=== PATIENT | female | born 1970 | race Caucasian/White ===

== ENCOUNTER 2016-11-05 19:48 | Emergency (ER) | payer OTHER ==
[2016-11-05 19:56] VITALS: BP 97/59
[2016-11-05] MEDS ORDERED: Azithromycin TAB* 250 MG PO ONE (20:38)
--- NOTE | 2016-11-05 20:53 | UC ---
Eye Complaint HPI - HPI Summary HPI Summary: FOUR DAYS OF WORSENING STYE ON LOWER LID OF RIGHT EYE. 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 Hx Last Menstrual Period: hysterectomy ?: Yes Onset/Duration: Sudden Onset Severity Initially: Mild Severity Currently: Moderate Associated Signs And Symptoms: Negative: Photophobia, Drainage (Clear), Drainage (Purulent), Vision Impairment Right, Vision Impairment Left - Risk Factors Penetrating Injury Risk Factor: Negative Acute Glaucoma Risk Factors: Negative Optic Artery Occlusion Risk Factors: Negative - Allergies/Home Medications Allergies/Adverse Reactions: Allergies Allergy/AdvReac Type Severity Reaction Status Date / Time Amoxicillin Allergy Unknown Verified 11/05/16 19:56 Reaction Details Penicillins AdvReac See Comment Verified 11/05/16 19:56 PMH/Surg Hx/FS Hx/Imm Hx Previously Healthy: Yes - Surgical History Surgical History: Yes Surgery Procedure, Year, and Place: hysterectomy. appendectomy. bilateral carpal tunnel - Family History Known Family History: Positive: Cardiac Disease, Hypertension, Diabetes - Social History Alcohol Use: Occasionally Substance Use Type: None Smoking Status (MU): Never Smoked Tobacco Length of Time of Smoking/Using Tobacco: only smoked at age 16 Have You Smoked in the Last Year: No Cessation Counseling: Patient Advised to Stop Review of Systems Constitutional: Negative Skin: Negative Eyes: Other - STYE RIGHT INFERIOR LID ENT: Negative Respiratory: Negative Cardiovascular: Negative Gastrointestinal: Negative Genitourinary: Negative Motor: Negative Neurovascular: Negative Musculoskeletal: Negative Neurological: Negative Psychological: Negative All Other Systems Reviewed And Are Negative: Yes Physical Exam Triage Information Reviewed: Yes Appearance: Well-Appearing, No Pain Distress, Well-Nourished Vital Signs: Initial Vital Signs Temp 97.4 F 11/05/16 19:50 Pulse 65 11/05/16 19:50 Resp 16 11/05/16 19:50 BP 97/59 11/05/16 19:50 Pulse Ox 98 11/05/16 19:50 Vital Signs Reviewed: Yes Eyes: Positive: Other: - STYE RIGHT INFERIOR LID ENT Exam: Normal ENT: Positive: Normal ENT inspection Dental Exam: Normal Neck exam: Normal Respiratory Exam: Normal Respiratory: Positive: Chest non-tender, Lungs clear, Normal breath sounds, No respiratory distress Cardiovascular Exam: Normal Cardiovascular: Positive: RRR, No Murmur, Pulses Normal Abdominal Exam: Normal Abdomen Description: Positive: Nontender, No Organomegaly Musculoskeletal Exam: Normal Neurological Exam: Normal Psychological Exam: Normal Psychological: Positive: Normal Response To Family Skin Exam: Normal Eye Complaint Course/Dx - Differential Dx/Diagnosis Differential Diagnosis/HQI/PQRI: Conjunctivitis Provider Diagnoses: RIGHT STYE INFERIOR LID Discharge - Discharge Plan Condition: Stable Disposition: HOME Prescriptions: Azithromycin TAB* [Zithromax TAB (Z-CJ) 250 mg #6 tabs] 250 mg PO DAILY #4 tab Erythromycin OPTH OINT* 1 applic RIGHT EYE TID #1 tube Patient Education Materials: Nicolette (ED) Referrals: Catie Obrien MD [Primary Care Provider] -
== END 2016-11-05 20:55 | disposition home or self-care (01) ==
LOC: UCEAST 19:48
DX: H00.012 Hordeolum externum right lower eyelid (principal); Z72.0 Tobacco use
CPT/HCPCS: 99212; A9270-GY; G0463

== ENCOUNTER 2016-12-02 17:10 | Emergency (ER) | payer OTHER ==
[2016-12-02] MEDS ORDERED: NS 0.9% 1000 ML* 2,000 ML IV ONE (18:33)
[2016-12-02 19:11] LABS: Hematocrit 43 % (35-47); Hemoglobin 14.6 g/dl (12.0-16.0); Mean Corpuscular HGB Conc 34 g/dl (31-36); Mean Corpuscular Hemoglobin 32 pg (27-31); Mean Corpuscular Volume 94 fL (80-97); Mean Platelet Volume 11 um3 (7.4-10.4); Red Blood Count 4.59 10^6/ul (4.0-5.4); Red Cell Distribution Width 12 % (10.5-15); White Blood Count 17.3 10^3/ul (3.5-10.8)
[2016-12-02 19:20] LABS: ALT 16 U/L (7-52); Albumin 4.8 g/dL (3.2-5.2); Alkaline Phosphatase 49 U/L (34-104); BUN/Creatinine Ratio 10.4 (8-20); Blood Urea Nitrogen 8 mg/dL (6-24); C Reactive Protein < 1.00 mg/L (< 5.00); CO2 Carbon Dioxide 27 mmol/L (22-32); Calcium 9.5 mg/dL (8.6-10.3); Chloride 102 mmol/L (101-111); EGFR African American 103.8 (>60); EGFR Non-African American 80.7 (>60); Globulin 2.8 g/dL (2-4); Glucose 86 mg/dL (70-100); Lipase 26 U/L (11.0-82.0); Sodium 135 mmol/L (133-145); Total Protein 7.6 g/dL (6.4-8.9)
[2016-12-02 19:22] LABS: AST 22 U/L (13-39); Anion Gap 6 mmol/L (2-11); Potassium 3.5 mmol/L (3.5-5.0)
[2016-12-02 19:35] LABS: Urine Bacteria Absent (Absent); Urine Bilirubin Negative (Negative); Urine Glucose Negative (Negative); Urine Nitrite Negative (Negative)
[2016-12-02] MEDS ORDERED: NS 0.9% 1000 ML* 1,000 ML IV ONE (19:50)
[2016-12-02] MEDS ORDERED: Ondansetron INJ* 2 MG/ML VIAL IV ONE (19:50)
[2016-12-02] MEDS ORDERED: Ketorolac INJ* 30 MG/ML 1 ML VIAL IV ONE (19:50)
[2016-12-02] MEDS ORDERED: HYDROmorphone* 1 MG/ML 1 ML SYR IV ONE (19:50)
--- NOTE | 2016-12-02 20:24 | RAD ---
CLINICAL HISTORY: Left flank pain COMPARISON: July 03, 2015 TECHNIQUE: Multiple contiguous axial CT scans were obtained of the abdomen and pelvis, without intravenous contrast enhancement. Coronal and sagittal multiplanar reformations are submitted for review. Oral contrast was not administered. FINDINGS: The study is limited by the lack of intravenous contrast. This limits evaluation of the solid organs and vasculature. LUNG BASES: The lung bases are clear. LIVER: The liver is normal in shape, size, contour, and attenuation. BILE DUCTS: There is no intrahepatic or extrahepatic biliary dilatation. GALLBLADDER: The gallbladder is normal, without pericholecystic inflammatory change. PANCREAS: The pancreas is normal, without mass or ductal dilatation. SPLEEN: Normal in size and appearance. UPPER GI TRACT: Evaluation of the gastrointestinal tract is limited by incomplete gastric distention. The upper GI tract is unremarkable. SMALL BOWEL AND MESENTERY: The small bowel is normal in contour, course, and caliber. There is no obstruction or dilatation. COLON: The colon is normal in contour, course, caliber. There is no pericolonic inflammatory change. ADRENALS: Normal bilaterally. KIDNEYS: There is a calculus of the distal left ureter, just proximal to the left UVJ measuring approximately 0.4 cm in size there is mild pelviectasis and hydroureter. BLADDER: The bladder is smooth in contour. PELVIC ORGANS: The pelvic organs are not visualized. AORTA: The aorta is normal. IVC: Unremarkable LYMPH NODES: There is no lymphadenopathy by size criteria. ABDOMINAL WALL: There is no evidence for abdominal wall hernia. BONES AND SOFT TISSUES: Mild degenerative changes are noted. OTHER: There is a trace amount of free fluid within the pelvis IMPRESSION: 1. DISTAL LEFT URETERAL STONE, WITH MILD HYDRONEPHROSIS. 2. TRACE AMOUNT OF FREE FLUID WITHIN THE PELVIS.
[2016-12-02] MEDS ORDERED: Ciprofloxacin TAB* 500 MG PO ONE ×2 (21:08→21:09)
[2016-12-02] MEDS ORDERED: HYDROcodone/ACETAMIN 5-325 MG* 1 TAB PO ONE (21:09)
[2016-12-02 21:34] VITALS: BP 102/64
--- NOTE | 2016-12-03 13:23 | ED ---
Dudley Louie Thomas, scribed for Devante Rodriguez MD on 12/02/16 at 1942 . Abdominal Pain/Female - HPI Summary HPI Summary: The pt is a 46 y/o F accompanied by and presenting to the ED c/o abd pain that began two days ago. The pain is described as a pressure that radiates into her pelvic region. The pain is rated 9/10. The pain is aggravated by ambulation and deep breaths. It is alleviated by nothing. The patient has not treated the pain with anything RN TESTING. Pt additionally c/o hematuria, dizziness, L- sided flank pain, and nausea. Pt denies dysuria. PMHx: asthma, diverticulitis. PSHx: hysterectomy (2008), appendectomy. SHx: no smoking, occasional alcohol use , no illicit drug use. - History of Current Complaint Chief Complaint: EDAbdPain Stated Complaint: BLOOD IN URINE/ABD PAIN Time Seen by Provider: 12/02/16 19:29 Hx Obtained From: Patient, Family/Limited Radiology Technician - in room Hx Last Menstrual Period: hysterectomy Onset/Duration: Lasting Days - 2, Still Present Timing: Constant Pain Intensity: 9 Pain Scale Used: 0-10 Numeric Radiates to: Other - pelvic region Aggravating Factor(s): Movement, Deep Breaths Alleviating Factor(s): Nothing Associated Signs and Symptoms: Positive: Nausea, Other: - POS: hematuria, L- sided flank pain; NEG: dysuria. Allergies/Adverse Reactions: Allergies Allergy/AdvReac Type Severity Reaction Status Date / Time Amoxicillin Allergy Unknown Verified 12/02/16 18:29 Reaction Details Penicillins AdvReac See Comment Verified 12/02/16 18:29 PMH/Surg Hx/FS Hx/Imm Hx Previously Healthy: No Endocrine/Hematology History: Denies: Hx Diabetes, Hx Thyroid Disease Cardiovascular History: Denies: Hx Hypertension Respiratory History: Reports: Hx Asthma Denies: Hx Chronic Obstructive Pulmonary Disease (COPD) GI History: Denies: Hx Ulcer - Surgical History Surgery Procedure, Year, and Place: hysterectomy. appendectomy. bilateral carpal tunnel Infectious Disease History: No Infectious Disease History: Denies: Hx Hepatitis, Hx Human Immunodeficiency Virus (HIV), Traveled Outside the [place] in Last 30 Days - Family History Known Family History: Positive: Cardiac Disease, Hypertension, Diabetes - Social History Alcohol Use: Occasionally Substance Use Type: Reports: None Smoking Status (MU): Never Smoked Tobacco Length of Time of Smoking/Using Tobacco: only smoked at age 16 Have You Smoked in the Last Year: No Review of Systems Negative: Fever Positive: Abdominal Pain - pressure, radiates to pelvic, /10, onset 2 days ago , Nausea Positive: flank pain - L-sided, hematuria. Negative: dysuria Neurological: Other - POS: dizziness All Other Systems Reviewed And Are Negative: Yes Physical Exam Triage Information Reviewed: Yes Vital Signs On Initial Exam: Initial Vitals Temp Pulse Resp BP Pulse Ox 98.3 F 57 22 124/56 97 12/02/16 17:30 12/02/16 17:30 12/02/16 17:30 12/02/16 17:30 12/02/16 17:30 Vital Signs Reviewed: Yes Appearance: Positive: Well-Appearing, Well-Nourished, Pain Distress Skin: Positive: Warm, Skin Color Reflects Adequate Perfusion, Dry Head/Face: Positive: Normal Head/Face Inspection Eyes: Positive: Normal ENT: Positive: Normal ENT inspection Neck: Positive: Supple, Nontender Respiratory/Lung Sounds: Positive: Clear to Auscultation, Breath Sounds Present Cardiovascular: Positive: RRR Abdomen Description: Positive: Soft, CVA Tenderness (L), Other: - She is tender to her LLQ Bowel Sounds: Positive: Present Musculoskeletal: Positive: Normal Neurological: Positive: Normal Psychiatric: Positive: Normal, Affect/Mood Appropriate - Elsa Coma Scale Coma Scale Total: 15 Diagnostics - Vital Signs Vital Signs Temp Pulse Resp BP Pulse Ox 12/02/16 19:19 70 98 12/02/16 19:18 114/61 12/02/16 18:44 71 98 12/02/16 18:30 65 111/51 97 12/02/16 18:28 64 104/64 99 12/02/16 18:27 98.3 F 64 16 97/52 98 12/02/16 18:25 67 99 12/02/16 18:23 97/52 12/02/16 17:30 98.3 F 57 22 124/56 97 - Laboratory Lab Results: Lab Results 12/02/16 12/02/16 12/02/16 Range/Units 18:45 18:45 18:45 WBC 17.3 H (3.5-10.8) 10^3/ul RBC 4.59 (4.0-5.4) 10^6/ul Hgb 14.6 (12.0-16.0) g/dl Hct 43 (35-47) % MCV 94 (80-97) fL MCH 32 H (27-31) pg MCHC 34 (31-36) g/dl RDW 12 (10.5-15) % Plt Count 161 (150-450) 10^3/ul MPV 11 H (7.4-10.4) um3 Neut % (Auto) 87.0 H (38-83) % Lymph % (Auto) 6.5 L (25-47) % Davis % (Auto) 6.1 (1-9) % Eos % (Auto) 0.1 (0-6) % Baso % (Auto) 0.3 (0-2) % Absolute Neuts (auto) 15.0 H (1.5-7.7) 10^3/ul Absolute Lymphs (auto) 1.1 (1.0-4.8) 10^3/ul Absolute Monos (auto) 1.0 H (0-0.8) 10^3/ul Absolute Eos (auto) 0 (0-0.6) 10^3/ul Absolute Basos (auto) 0.1 (0-0.2) 10^3/ul Absolute Nucleated RBC 0.01 10^3/ul Nucleated RBC % 0 INR (Anticoag Therapy) 0.94 (0.89-1.11) Sodium 135 (133-145) mmol/L Potassium 3.5 (3.5-5.0) mmol/L Chloride 102 (101-111) mmol/L Carbon Dioxide 27 (22-32) mmol/L Anion Gap 6 (2-11) mmol/L BUN 8 (6-24) mg/dL Creatinine 0.77 (0.51-0.95) mg/dL Est GFR ( Amer) 103.8 (>60) Est GFR (Non-Af Amer) 80.7 (>60) BUN/Creatinine Ratio 10.4 (8-20) Glucose 86 (70-100) mg/dL Lactic Acid (0.5-2.0) mmol/L Calcium 9.5 (8.6-10.3) mg/dL Total Bilirubin 0.70 (0.2-1.0) mg/dL AST 22 (13-39) U/L ALT 16 (7-52) U/L Alkaline Phosphatase 49 (34-104) U/L C-Reactive Protein < 1.00 (< 5.00) mg/L Total Protein 7.6 (6.4-8.9) g/dL Albumin 4.8 (3.2-5.2) g/dL Globulin 2.8 (2-4) g/dL Albumin/Globulin Ratio 1.7 (1-3) Lipase 26 (11.0-82.0) U/L Beta HCG, Quant < 0.60 mIU/mL Urine Color Urine Appearance Urine pH (5-9) Ur Specific [place] (1.010-1.030) Urine Protein (Negative) Urine Ketones (Negative) Urine Blood (Negative) Urine Nitrate (Negative) Urine Bilirubin (Negative) Urine Urobilinogen (Negative) Ur Leukocyte Esterase (Negative) Urine WBC (Auto) (Absent) Urine RBC (Auto) (Absent) Ur Squamous Epith Cells (Absent) Urine Bacteria (Absent) Urine Glucose (Negative) 12/02/16 12/02/16 Range/Units 18:45 19:15 WBC (3.5-10.8) 10^3/ul RBC (4.0-5.4) 10^6/ul Hgb (12.0-16.0) g/dl Hct (35-47) % MCV (80-97) fL MCH (27-31) pg MCHC (31-36) g/dl RDW (10.5-15) % Plt Count (150-450) 10^3/ul MPV (7.4-10.4) um3 Neut % (Auto) (38-83) % Lymph % (Auto) (25-47) % Davis % (Auto) (1-9) % Eos % (Auto) (0-6) % Baso % (Auto) (0-2) % Absolute Neuts (auto) (1.5-7.7) 10^3/ul Absolute Lymphs (auto) (1.0-4.8) 10^3/ul Absolute Monos (auto) (0-0.8) 10^3/ul Absolute Eos (auto) (0-0.6) 10^3/ul Absolute Basos (auto) (0-0.2) 10^3/ul Absolute Nucleated RBC 10^3/ul Nucleated RBC % INR (Anticoag Therapy) (0.89-1.11) Sodium (133-145) mmol/L Potassium (3.5-5.0) mmol/L Chloride (101-111) mmol/L Carbon Dioxide (22-32) mmol/L Anion Gap (2-11) mmol/L BUN (6-24) mg/dL Creatinine (0.51-0.95) mg/dL Est GFR ( Amer) (>60) Est GFR (Non-Af Amer) (>60) BUN/Creatinine Ratio (8-20) Glucose (70-100) mg/dL Lactic Acid 1.3 (0.5-2.0) mmol/L Calcium (8.6-10.3) mg/dL Total Bilirubin (0.2-1.0) mg/dL AST (13-39) U/L ALT (7-52) U/L Alkaline Phosphatase (34-104) U/L C-Reactive Protein (< 5.00) mg/L Total Protein (6.4-8.9) g/dL Albumin (3.2-5.2) g/dL Globulin (2-4) g/dL Albumin/Globulin Ratio (1-3) Lipase (11.0-82.0) U/L Beta HCG, Quant mIU/mL Urine Color Stefania Urine Appearance Cloudy Urine pH 6.0 (5-9) Ur Specific [place] 1.008 L (1.010-1.030) Urine Protein 2+(100 mg/dl) H (Negative) Urine Ketones Negative (Negative) Urine Blood 3+ H (Negative) Urine Nitrate Negative (Negative) Urine Bilirubin Negative (Negative) Urine Urobilinogen Negative (Negative) Ur Leukocyte Esterase Negative (Negative) Urine WBC (Auto) 1+(6-10/hpf) H (Absent) Urine RBC (Auto) 3+(>10/hpf) H (Absent) Ur Squamous Epith Cells Present H (Absent) Urine Bacteria Absent (Absent) Urine Glucose Negative (Negative) Result Diagrams: 12/02/16 18:45 12/02/16 18:45 Lab Statement: Any lab studies that have been ordered have been reviewed, and results considered in the medical decision making process. - CT CT Abd/Pel CT Interpretation: Positive (See Comments) - 1. DISTAL LEFT URETERAL STONE, WITH MILD HYDRONEPHROSIS. 2. TRACE AMOUNT OF FREE FLUID WITHIN THE PELVIS. CT Interpretation Completed By: Radiologist Abdominal Pain Fem Course/Dx - Course Course Of Treatment: Ms Saldana presented with two days of LLQ pain and occasional back pain. She was found to have a 4 mm left ureteral stone with mild hydronephrosis and a leukocytoss of 17. Her urine was equivocal with 3+ RBC's and 1+ WBC's, no bacteria and positive squamous cells. She was treated with antibiotics, pain meds and flomax; she will F/U with urology. - Diagnoses Provider Diagnoses: Kidney stone Discharge - Discharge Plan Condition: Stable Disposition: HOME Prescriptions: Ciprofloxacin TAB* [Cipro Tab*] 500 mg PO BID #20 tab HYDROcodone/ACETAMIN 5-325 MG* [[place] 5-325 TAB*] 1 tab PO Q6H PRN #20 tab MDD 4 PRN Reason: Pain Tamsulosin CAP* [Flomax CAP*] 0.4 mg PO DAILY #7 cap Patient Education Materials: Kidney Stones (ED) Referrals: Mandeep Gale MD [Medical Doctor] - 2 Days Additional Instructions: Follow up with Dr. Gale. The documentation as recorded by the Dudley rojas Thomas accurately reflects the service I personally performed and the decisions made by , Devante Rodriguez MD.
== END 2016-12-02 21:18 | disposition home or self-care (01) ==
LOC: ED 17:10
DX: N20.1 Calculus of ureter (principal); N20.0 Calculus of kidney; R11.0 Nausea
CPT/HCPCS: 36415; 74176; 80053; 81003; 81015; 83605; 83690; 84702; 85025; 85610; 86140; 96374; 96375; 99284; A9270-GY; J1170; J1885; J2405

== ENCOUNTER 2016-12-04 03:58 | Observation (INO) | payer OTHER ==
[2016-12-04] MEDS ORDERED: Ketorolac INJ* 30 MG/ML 1 ML VIAL IV ONE (04:37)
[2016-12-04] MEDS ORDERED: Ondansetron INJ* 2 MG/ML VIAL IV ONE (04:37)
[2016-12-04] MEDS ORDERED: HYDROmorphone* 1 MG/ML 1 ML SYR IV ONE (04:37)
[2016-12-04] MEDS: NS 0.9% 1000 ML* 2,000 ML IV ONE ×2 (05:37→07:15)
[2016-12-04 06:18] LABS: Urine Bacteria 1+ (Absent); Urine Bilirubin Negative (Negative); Urine Glucose Negative (Negative); Urine Nitrite Negative (Negative)
[2016-12-04 06:25] LABS: ALT 15 U/L (7-52); Albumin 4.1 g/dL (3.2-5.2); Alkaline Phosphatase 39 U/L (34-104); BUN/Creatinine Ratio 8.8 (8-20); Blood Urea Nitrogen 8 mg/dL (6-24); CO2 Carbon Dioxide 26 mmol/L (22-32); Chloride 104 mmol/L (101-111); EGFR African American 85.6 (>60); EGFR Non-African American 66.6 (>60); Glucose 116 mg/dL (70-100); Sodium 136 mmol/L (133-145); Total Protein 7.1 g/dL (6.4-8.9)
[2016-12-04] MEDS ORDERED: HYDROmorphone* 1 MG/ML 1 ML SYR IV SLOW PU ONE (06:48)
[2016-12-04 06:55] LABS: Anion Gap 6 mmol/L (2-11)
--- NOTE | 2016-12-04 06:57 | ED ---
Kenrick Louie Rebecca, scribed for Luis Pires MD on 12/04/16 at 0435 . Abdominal Pain/Female - HPI Summary HPI Summary: Pt is a 46 y/o F who presents to ED c/o L-sided abdominal pain. Pain began 4 days ago, worsening this morning at 0100. Pain is currently severe, ranked 10/ 10. Sx aggravated and alleviated by nothing, unchanged by prescribed pain medication. Additionally c/o N/V. Denies dysuria and fever. Pt was evaluated 2 days ago by [facility] where she had a CT Abd/Pel that determined a Dx of renal calculi. Has not eaten or drank anything this morning. - History of Current Complaint Chief Complaint: EDGeneral Stated Complaint: RIGHT FLANK PAIN/DX KIDNEY STONES Time Seen by Provider: 12/04/16 04:26 Hx Obtained From: Patient Hx Last Menstrual Period: hysterectomy Onset/Duration: Still Present, Worse Since - 0100 Severity Currently: Severe Pain Intensity: 10 Pain Scale Used: 0-10 Numeric Location: Other - L-sided Aggravating Factor(s): Nothing Alleviating Factor(s): Nothing Associated Signs and Symptoms: Positive: Nausea, Vomiting. Negative: Fever Allergies/Adverse Reactions: Allergies Allergy/AdvReac Type Severity Reaction Status Date / Time Amoxicillin Allergy Unknown Verified 12/02/16 18:29 Reaction Details Penicillins AdvReac See Comment Verified 12/02/16 18:29 PMH/Surg Hx/FS Hx/Imm Hx Endocrine/Hematology History: Denies: Hx Diabetes, Hx Thyroid Disease Cardiovascular History: Denies: Hx Hypertension Respiratory History: Reports: Hx Asthma Denies: Hx Chronic Obstructive Pulmonary Disease (COPD) GI History: Denies: Hx Ulcer - Surgical History Surgery Procedure, Year, and Place: hysterectomy. appendectomy. bilateral carpal tunnel Infectious Disease History: No Infectious Disease History: Denies: Hx Hepatitis, Hx Human Immunodeficiency Virus (HIV), Traveled Outside the [place] in Last 30 Days - Family History Known Family History: Positive: Cardiac Disease, Hypertension, Diabetes - Social History Alcohol Use: Occasionally Substance Use Type: Reports: None Smoking Status (MU): Never Smoked Tobacco Length of Time of Smoking/Using Tobacco: only smoked at age 16 Have You Smoked in the Last Year: No Review of Systems Negative: Fever Positive: Abdominal Pain - L-sided abd pain, Vomiting, Nausea Negative: dysuria All Other Systems Reviewed And Are Negative: Yes Physical Exam - Summary Physical Exam Summary: The patient is well-nourished and in mild distress. The skin is warm and dry and skin color reflects adequate perfusion. HEENT: The head is normocephalic and atraumatic. The pupils are equal and reactive. The conjunctivae are clear and without drainage. Nares are patent and without drainage. Mouth reveals moist mucous membranes and the throat is without erythema and exudate. The external ears are intact. The ear canals are patent and without drainage. The tympanic membranes are intact. Respiratory: Chest is non-tender. Lungs are clear to auscultation and breath sounds are symmetrical and equal. Cardiovascular: Hear is regular rate and rhythm. There is no murmur or rub auscultated. There is no peripheral edema and pulses are symmetrical and equal. Abdomen: The abdomen is soft she reports the left side of the abdomen hurts. Reproducible left flank tenderness. There are normal bowel sounds heard in all four quadrants and there is no organomegaly palpated. Musculoskeletal: L CVA tenderness. Extremities are non-tender with full range of motion. There is good capillary refill. There is no peripheral edema or calf tenderness elicited. Neurological: Patient is alert and oriented to person, place and time. Psychiatric: The patient has an appropriate affect and does not exhibit any anxiety or depression. Triage Information Reviewed: Yes Vital Signs On Initial Exam: Initial Vitals Temp Pulse Resp BP Pulse Ox 97.6 F 66 18 96/66 98 12/04/16 04:00 12/04/16 04:00 12/04/16 04:00 12/04/16 04:00 12/04/16 04:00 Vital Signs Reviewed: Yes Diagnostics - Vital Signs Vital Signs Temp Pulse Resp BP Pulse Ox 12/04/16 04:03 97 F 66 20 96/66 98 12/04/16 04:00 97.6 F 66 18 96/66 98 - Laboratory Lab Results: Lab Results 12/04/16 12/04/16 Range/Units 05:39 05:45 Sodium 136 (133-145) mmol/L Potassium TNP Chloride 104 (101-111) mmol/L Carbon Dioxide 26 (22-32) mmol/L Anion Gap 6 (2-11) mmol/L BUN 8 (6-24) mg/dL Creatinine 0.91 (0.51-0.95) mg/dL Est GFR ( Amer) 85.6 (>60) Est GFR (Non-Af Amer) 66.6 (>60) BUN/Creatinine Ratio 8.8 (8-20) Glucose 116 H (70-100) mg/dL Calcium 9.0 (8.6-10.3) mg/dL Total Bilirubin 0.70 (0.2-1.0) mg/dL AST TNP ALT 15 (7-52) U/L Alkaline Phosphatase 39 (34-104) U/L Total Protein 7.1 (6.4-8.9) g/dL Albumin 4.1 (3.2-5.2) g/dL Globulin 3.0 (2-4) g/dL Albumin/Globulin Ratio 1.4 (1-3) Urine Color Straw Urine Appearance Clear Urine pH 6.0 (5-9) Ur Specific [place] 1.003 L (1.010-1.030) Urine Protein Negative (Negative) Urine Ketones Negative (Negative) Urine Blood 2+ H (Negative) Urine Nitrate Negative (Negative) Urine Bilirubin Negative (Negative) Urine Urobilinogen Negative (Negative) Ur Leukocyte Esterase Negative (Negative) Urine WBC (Auto) Trace(0-5/hpf) (Absent) Urine RBC (Auto) Trace(0-2/hpf) (Absent) Ur Squamous Epith Cells Present H (Absent) Urine Bacteria 1+ H (Absent) Urine Glucose Negative (Negative) Result Diagrams: 12/04/16 05:39 Lab Statement: Any lab studies that have been ordered have been reviewed, and results considered in the medical decision making process. Re-Evaluation - Re-Evaluation First Eval Re-Evaluation Time: 06:48 Change: Unchanged Comment: Pt has no relief with pain medication administered. Abdominal Pain Fem Course/Dx - Course Course Of Treatment: Pt is a 46 y/o F who presents to ED c/o L-sided abdominal pain. Pain began 4 days ago, worsening this morning at 0100. Pain is currently severe, ranked 10/10. Sx aggravated and alleviated by nothing, unchanged by prescribed pain medication. Additionally c/o N/V. Denies dysuria and fever. Pt was evalauted 2 days ago by [facility] where she had a CT Abd/Pel that determined a Dx of renal calculi. Has not eaten or drank anything this morning. In the ED course, the pt was administered fluids, Dilaudid, Toradol and Zofran. She will be signed out to Dr. Flores, pending dispo, awaiting pain management. - Diagnoses Differential Diagnosis: Positive: Urinary Tract Infection, Other - ureteral calculus Provider Diagnoses: Left ureteral calculus Discharge - Discharge Plan Condition: Stable Disposition: OTHER Discharge Disposition Comment: Pt will be signed out to Dr. Flores, pending dispo, awaiting pain managemen Referrals: Catie Obrien MD [Primary Care Provider] - The documentation as recorded by the Kenrick rojas Rebecca accurately reflects the service I personally performed and the decisions made by me, Luis Pires MD.
[2016-12-04 07:18] LABS: Hematocrit 38 % (35-47); Hemoglobin 12.9 g/dl (12.0-16.0); Mean Corpuscular HGB Conc 34 g/dl (31-36); Mean Corpuscular Hemoglobin 32 pg (27-31); Mean Corpuscular Volume 94 fL (80-97); Mean Platelet Volume 10 um3 (7.4-10.4); Red Blood Count 4.05 10^6/ul (4.0-5.4); Red Cell Distribution Width 12 % (10.5-15); White Blood Count 14.3 10^3/ul (3.5-10.8)
[2016-12-04] MEDS ORDERED: Ondansetron TAB* 4 MG PO ONE (08:36)
[2016-12-04] MEDS ORDERED: oxyCODONE/Acetamin 5/325 MG* TAB PO ONE (08:36)
--- NOTE | 2016-12-04 09:46 | RAD ---
HISTORY: Left flank pain and umbilical pain, evaluate for torsion. The patient is status post hysterectomy. COMPARISONS: None relevant TECHNIQUE: Multiple transverse and longitudinal ultrasound images were obtained of the pelvis using grayscale, color Doppler, and spectral Doppler imaging using the endovaginal transducer. FINDINGS: UTERUS: The uterus is not visualized.. ENDOMETRIUM: The endometrium is not visualized.. CUL-DE-SAC: There is a small amount of simple fluid within the cul-de-sac. This may be physiologic in a reproductive age female. RIGHT OVARY: The right ovary is not visualized LEFT OVARY: The left ovary measures 2.8 x 2.4 x 2.6 cm. There is a 2.2 cm simple cyst of the left ovary. Normal arterial and venous waveforms are identifiable within the ovary on spectral Doppler imaging. BLADDER: The bladder is not well visualized. OTHER: None IMPRESSION: 1. STATUS POST HYSTERECTOMY. 2. THE RIGHT OVARY IS NOT VISUALIZED. 3. 2.2 CM SIMPLE CYST OF LEFT OVARY. 4. SMALL AMOUNT OF FREE FLUID WITHIN THE PELVIS. THIS MAY BE PHYSIOLOGIC WITHIN A REPRODUCTIVE AGE FEMALE. 5. NO SONOGRAPHIC FEATURES OF TORSION. PLEASE NOTE THAT PARTIAL OR INTERMITTENT TORSION MAY BE SONOGRAPHICALLY NORMAL.
--- NOTE | 2016-12-04 09:50 | RAD ---
HISTORY: Pain, lateral, left renal stone COMPARISONS: CT dated December 02, 2016 TECHNIQUE: Multiple transverse and longitudinal ultrasound images were obtained of the left kidney and bladder using grayscale and color Doppler imaging. FINDINGS: RIGHT KIDNEY: No images are submitted of the right kidney. LEFT KIDNEY: The left kidney is normal in shape, size, contour, and echogenicity. There is mild pelviectasis. The left kidney measures 11 x 5.1 x 6.6 cm. BLADDER: The bladder is smooth in contour. Bilateral ureteral jets are identified. The catheter is noted on the CT is not well visualized current examination. AORTA AND IVC: No images are submitted of the vasculature. RETROPERITONEUM: Unremarkable. OTHER: None. IMPRESSION: MILD LEFT PELVIECTASIS. BILATERAL URETERAL JETS.
--- NOTE | 2016-12-04 10:23 | ED ---
Yadi Louie Edward, scribed for Jimmie Flores MD on 12/04/16 at 0737 . Progress - Progress Note Progress Note: Sign out from Dr. Pires at shift change. Patient discussed with Dr Gale who will review the CT scan and then call me back 835 am. Patient has 6/10 pain left side. Non tender abdomen. Getting sono. hospitalist and Dr Gale has asked that the patient be put in OBV, NPO, and if the patient remains in pain he will take to OR for stent. - Results/Orders Results/Orders: PELVIS US - 1. STATUS POST HYSTERECTOMY. 2. THE RIGHT OVARY IS NOT VISUALIZED. 3. 2.2 CM SIMPLE CYST OF LEFT OVARY. 4. SMALL AMOUNT OF FREE FLUID WITHIN THE PELVIS. THIS MAY BE PHYSIOLOGIC WITHIN A REPRODUCTIVE AGE FEMALE. 5. NO SONOGRAPHIC FEATURES OF TORSION. PLEASE NOTE THAT PARTIAL OR INTERMITTENT TORSION MAY BE SONOGRAPHICALLY NORMAL. RENAL US - MILD LEFT PELVIECTASIS. BILATERAL URETERAL JETS. Re-Evaluation - Re-Evaluation First Eval Re-Evaluation Time: 06:48 Change: Unchanged Comment: Pt has no relief with pain medication administered. 2 Re-Evaluation Time: 08:30 Comment: First re-eval post shift change Course/Dx - Course Course Of Treatment: Pt is a 46 y/o F who presents to ED c/o L-sided abdominal pain. Pain began 4 days ago, worsening this morning at 0100. Pain is currently severe, ranked 10/10. Sx aggravated and alleviated by nothing, unchanged by prescribed pain medication. Additionally c/o N/V. Denies dysuria and fever. Pt was evalauted 2 days ago by [facility] ED where she had a CT Abd/Pel that determined a Dx of renal calculi. Has not eaten or drank anything this morning. In the ED course, the pt was administered fluids, Dilaudid, Toradol and Zofran. She will be signed out to Dr. Flores, pending dispo, awaiting pain management. - Diagnoses Provider Diagnoses: Left ureteral calculus - Provider Notifications Discussed Care Of Patient With: Mandeep Gale Time Discussed With Above Provider: 08:37 The documentation as recorded by the wayneibYadi davis Edward accurately reflects the service I personally performed and the decisions made by me, Jmimie Flores MD.
[2016-12-04] MEDS ORDERED: Albuterol HFA INHALER* 8 gm MDI INH PRN (10:32)
[2016-12-04] MEDS ORDERED: Ondansetron INJ* 2 MG/ML VIAL IV PRN (10:33)
[2016-12-04] MEDS ORDERED: Acetaminophen TAB* 325 MG PO PRN (10:33)
[2016-12-04] MEDS ORDERED: HYDROmorphone* 1 MG/ML 1 ML SYR IV SLOW PU PRN (10:34)
[2016-12-04] MEDS ORDERED: PROCHLORPERAZINE INJ 5 MG/ML 2 ML VIAL IV PRN ×2 (10:34→17:59)
[2016-12-04] MEDS ORDERED: NS 0.9% 1000 ML* 1,000 ML IV SCH (10:45)
[2016-12-04] MEDS ORDERED: Levofloxacin 750 MG IVPREMIX(* 750 MG/150 ML BAG IVPB SCH (11:00)
[2016-12-04] MEDS ORDERED: Ketorolac INJ* 30 MG/ML 1 ML VIAL IV PUSH SCH (11:00)
--- NOTE | 2016-12-04 13:33 | HP ---
CC: Dr. Obrien * DATE OF ADMISSION: 12/04/2016. TIME OF EVALUATION: 10:15 a.m. CHIEF COMPLAINT: Belly pain. HISTORY OF PRESENT ILLNESS: Ms. Saldana is a 46-year-old lady with a past medical history of asthma, irritable bowel syndrome, and dry eye syndrome who presented to the emergency room with complaints of left lower quadrant pain. The patient states that three days ago she started to mild left flank pain radiating to her left inguinal area. She says that the pain was initially mild and she thought maybe she had pulled a muscle when playing with her cat. She went to work and she noticed that her urine was a tiana color. As the day progressed, the pain continued and at the end of her shift she states that her urine was "pure blood," so she came to the emergency room for further evaluation. On that visit, the patient had a CT of the abdomen and pelvis that showed distal left ureteral stone with mild hydronephrosis. She had a white cell count of 17,000 and her urinalysis showed 3+ blood, 1+ WBC, and 3+ RBC. There is no urine culture for that urinalysis in our system. She was discharged home on Tamsulosin, Ciprofloxacin, and Hydrocodone/ acetaminophen. She states that yesterday she felt relatively well, was able to go to work and her urine has cleared up. She states she took her medications as prescribed, but around one in the morning today, she woke up again with severe left flank pain radiating to the left inguinal area, 10/10 in intensity, associated with nausea, vomiting, and diaphoresis, so she came to the emergency room for further evaluation. As the patient has had recurrent symptoms, the plan is to have her admitted for symptom control. The patient denies fever, chills, chest pain, palpitations, shortness of breath or any other complaints. PAST MEDICAL HISTORY: 1. Asthma. 2. Irritable bowel syndrome. 3. Dry eye syndrome. 4. Status post hysterectomy. 5. Status post bilateral carpal tunnel repair. MEDICATIONS: 1. Acyclovir 200 mg p.o. b.i.d. 2. Albuterol Sulfate two puffs inhaled q.4 hours prn shortness of breath. 3. Ciprofloxacin 500 mg p.o. b.i.d. 4. Colace one tablet p.o. b.i.d. 5. Flovent HFA two puffs inhaled b.i.d. 6. Fluticasone nasal spray two sprays to both nares daily. 7. Hydrocodone/acetaminophen 5/325 mg one tablet p.o. q.4 hours as needed for pain. 8. Multivitamin one capsule p.o. daily. 9. Metamucil one packet p.o. daily. 10. Tamsulosin 0.4 mg p.o. daily. ALLERGIES: PENICILLINS. FAMILY HISTORY: The patient's mother passed of colon cancer. Father has a history of hypertension and stroke. SOCIAL HISTORY: She denies tobacco or drug use. She states she drinks occasionally. Last drink was beer and some mixed drinks two weeks ago. 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 Surrogate decision maker is her daughter, Lisseth Pagan, phone number [phone]. REVIEW OF SYSTEMS: A 14 point review of systems was performed. All the pertinent negatives and positives are found in the HPI. PHYSICAL EXAMINATION GENERAL: The patient is a pleasant lady, lying in bed in no acute distress. VITAL SIGNS: Temperature 97.6, heart rate 56, respiratory rate 18, oxygen saturation 96 percent on room air, blood pressure 101/60. HEENT: Pupils are equal, moist mucus membranes. CVS: Normal S1, S2. Regular rate and rhythm. Bradycardic. CHEST: Breath sounds present bilaterally with no added sounds. ABDOMEN: Soft with mild left lower quadrant tenderness. No guarding, no rebound, no CVA tenderness. NEUROLOGIC: She is alert and oriented times three, able to move all four extremities. LABORATORY/IMAGING DATA: The patient had a CBC that shows WBC of 14.3, hemoglobin of 12.9, hematocrit of 38, platelets of 154 with 87 percent neutrophils. Chemistry showed a sodium of 136, potassium was not measured, chloride was 104, bicarb was 26, BUN was 8, creatinine was 0.91, glucose was 116 , lactic acid was 0.7, calcium was 9. LFT's were normal. Urinalysis showed 2+ blood, 1+ bacteria. Renal ultrasound showed mild left pelviectasis and bilateral ureteral jets. Pelvis ultrasound showed a 2.2 simple cyst of the left ovary, small amount of free fluid within the pelvis, no sonographic features of torsion. EKG done on December 04 at 10:35 a.m. shows sinus bradycardia with no significant ST-T changes, no significant change from her prior EKG from September 2015. ASSESSMENT AND PLAN: Ms. Saldana is a 46-year-old lady with a past medical history of asthma and irritable bowel who presented to the emergency room for the second time in three days with complaints of left flank pain radiating to the left lower quadrant secondary to renal colic. 1. Renal colic: The patient will be admitted for medical management of hr pain. The plan is for aggressive IV hydration, to continue pain management with Toradol and Dilaudid as needed, but if her pain does not resolve, urologist is planning to take her to the OR later today in the early evening for stent placement. She will be seen in consultation by Dr. Gale and he does not feel she needs antibiotics right now, but would like her to receive Levofloxacin 750 mg material control specialist to the OR in case she does need a procedure done. The patient will receive a clear liquid diet for now and she will be NPO after lunch. The patient is healthy with no history of heart disease. Her EKG shows no new changes and I believe the patient is optimized for her procedure with no further testing. 2. Asthma: Stable. Will continue bronchodilators as needed and inhaled steroids. 3. Irritable bowel: Will continue Metamucil and Colace. 4. DVT prophylaxis: The patient has a score of 1 on the DVT Prophylaxis Risk Assessment Guide and we are going to encourage ambulation, especially because she already has hematuria. 5. Code status: Full. Approximately 55 minutes were spent with patient interview, medical records review, and physical examination to complete this admission with more than half this time spent [id number] with the patient in coordination of care. [id number]/[facility] #: [id number] MORGAN
[2016-12-04] MEDS ORDERED: Pneumococcal *Vac Polyvalent 0.5 ML VIAL IM ONE (14:00)
[2016-12-04] MEDS ORDERED: Buffered Lidocaine 0.9% SYRIN* 5 ML/SYR SYRINGE INTRADERM ONE (14:46)
[2016-12-04] MEDS ORDERED: Famotidine IV* 10 MG/ML 2 ML (20 mg) IV ONE (16:00)
[2016-12-04] MEDS ORDERED: Levofloxacin 750 MG IVPREMIX(* 750 MG/150 ML BAG ONE (16:26)
[2016-12-04] MEDS ORDERED: Famotidine IV* 10 MG/ML 2 ML (20 mg) ONE (16:26)
[2016-12-04] MEDS ORDERED: Iohexol 180 (CONTRAST) 10 ML SDV IV ONE (17:01)
[2016-12-04] MEDS ORDERED: Midazolam* 1 MG/ML 2 ML VIAL (2 MG) ONE (17:21)
[2016-12-04] MEDS ORDERED: fentaNYL* 50 MCG/ML 2 ML VIAL (100 MCG VIAL) ONE (17:21)
[2016-12-04] MEDS ORDERED: Propofol* 10 MG/ML 20 ML BTL IV PUSH ONE (17:21)
[2016-12-04] MEDS ORDERED: Lidocaine 2% PF * 5 ML VIAL ONE (17:21)
[2016-12-04] MEDS ORDERED: EPHEDrine (Pressors)* 50 MG/ML VIAL ONE (17:45)
[2016-12-04] MEDS ORDERED: Ondansetron INJ* 2 MG/ML VIAL ONE (17:49)
[2016-12-04] MEDS ORDERED: oxyCODONE/Acetamin 5/325 MG* TAB PO PRN (17:59)
[2016-12-04] MEDS ORDERED: HYDROcodone/ACETAMIN 5-325 MG* 1 TAB PO PRN (17:59)
[2016-12-04] MEDS ORDERED: fentaNYL* 50 MCG/ML 2 ML VIAL (100 MCG VIAL) IV PRN (17:59)
[2016-12-04] MEDS ORDERED: Mometasone 220 MCG MDI INH SCH (18:00)
[2016-12-04 18:40] VITALS: BP 113/61
--- NOTE | 2016-12-04 18:46 | RAD ---
INDICATION: Ureteral stent placement left side. COMPARISON: Comparison is made with a prior CT of the abdomen and pelvis from December 02, 2016. TECHNIQUE: 6 seconds of intermittent fluoroscopic guidance were provided and 4 spot films of the abdomen were centered on the left side. FINDINGS: There is partial opacification of the left renal collecting system. Subsequently there is placement of a double-J stent catheter on the left side which demonstrates normal course. IMPRESSION: INTRAOPERATIVE CONTROL FILMS. CPT II Codes: 6045F
[2016-12-04] MEDS ORDERED: Docusate CAP* 100 MG PO SCH (21:00)
--- NOTE | 2016-12-05 03:34 | OP ---
CC: Dr. Obrien * DATE OF OPERATION: 12/04/16 - ROOM #347 DATE OF : 70 SURGEON: Mandeep Gale MD ANESTHESIOLOGIST: Dr. Gricelda Jones. ANESTHESIA: General. PRE-OP DIAGNOSIS: Distal left ureteral calculus (5 to 6 mm). POST-OP DIAGNOSIS: Distal left ureteral calculus (5 to 6 mm). OPERATIVE PROCEDURE: Cystoscopy Left ureteroscopy and basketing of left ureteral calculus. Left retrograde pyelography, and placement of left ureteral stent (6- Honduran). INDICATION FOR PROCEDURE: Mrs. Saldana is a 46-year-old white female, who gives no past history of renal calculus disease, who presented to the emergency room 2 days ago with symptoms of left renal colic. Noncontrast CT of the abdomen and pelvis showed a 5-mm calculus in the distal left ureter associated with moderate left hydronephrosis. The patient was managed conservatively and sent home on oral pain medication, tamsulosin, and Cipro. The pain recurred today and she presented back to the emergency room with symptoms of left renal colic. She had additional work-up with a pelvic ultrasound, which was normal and a renal ultrasound, which showed left hydronephrosis. The patient has been requiring intravenous pain medications for pain control. Because of the above history and findings and the recurrent nature of the pain, the patient is taken to the operating room for endoscopic stone extraction. PATHOLOGY AT CYSTOSCOPY: The bladder mucosa looked normal. There were no suspicious bladder lesions seen. No calculi or diverticulae were noted. The ureteral orifices looked normal. No changes of cystitis. Upon left ureteroscopy, there was a calculus measuring about 5 to 6 mm in size that was impacted in the distal left ureter about 1 to 2 cm above the level of the orifice. The calculus had the gross appearance of a calcium oxalate stone. It had irregular edges explaining its impaction. Left retrograde pyelography showed [id number] left hydronephrosis. DESCRIPTION OF PROCEDURE: After successful general anesthesia, the patient was placed in the lithotomy position and was prepped and draped for a cystoscopy. Cystoscopy was performed. The bladder was inspected and the above findings were noted. A hybrid wire was then introduced into the left orifice. After several attempts , it was successfully introduced past the calculus, and was positioned in the area of the renal pelvis. A size 6.5 semi-rigid tapered ureteroscope was then passed inside the bladder. A flexible tip basket was introduced through the port of the ureteroscope and its flexible tip was introduced inside the left ureter adjacent to the guidewire and was used as a guide to introduce the ureteroscope with minimal trauma to the ureter. The calculus was identified. It was disimpacted and pushed into the distal ureter. At that level, it was engaged with a basket. It broke into 2 fragments. The fragments were then extracted separately with minimal trauma to the ureter, and sent for stone analysis. Retrograde pyelography was then performed. A size 6-Honduran stent was then placed with the proximal end coiling in renal pelvis and distal end coiling inside the bladder. The patient tolerated the procedure well and left the operating room in good condition. The plan is to see the patient back in the office next week and the stent will be removed in the office. [id number]/[facility] #: [id number] MORGAN
[2016-12-05] MEDS ORDERED: Psyllium PAK PO SCH (09:00)
[2016-12-05] MEDS ORDERED: Vitamin THERAPEUTIC TAB PO SCH (09:00)
[2016-12-05] MEDS ORDERED: Tamsulosin CAP* 0.4 MG PO SCH (09:00)
[2016-12-05] MEDS ORDERED: Fluticasone NASAL SPRAY 50MCG* 16 gm SPRAY BTL BOTH NARES SCH (09:00)
== END 2016-12-04 18:54 | disposition home or self-care (01) ==
LOC: ED 03:58 → SSU 10:31
PROVIDERS: ADMIT Internal Medicine; ATTEND Urology
DX: N13.2 Hydronephrosis with renal and ureteral calculous obstruction (principal); R10.32 Left lower quadrant pain; J45.909 Unspecified asthma, uncomplicated; K58.9 Irritable bowel syndrome, unspecified; N83.292 Other ovarian cyst, left side
CPT/HCPCS: 36415; 74420; 76775; 76856; 80053; 81003; 81015; 82365; 83605; 85025; 87086; 88300; 90732; 93005; 96374; 96375; 99284; A9270-GY; C1876; G0378; J1170; J1885; J2250; J2405; J2704; J3010

== ENCOUNTER 2018-02-27 17:42 | Emergency (ER) | payer BC, OTHER ==
[2018-02-27] MEDS ORDERED: HYDROcodone/ACETAMIN 5-325 MG* 1 TAB PO ONE (18:20)
--- NOTE | 2018-02-27 19:26 | ED ---
Upper Extremity Pain - HPI Summary HPI Summary: Patient complains of right shoulder pain starting yesterday 2 p.m. 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 History of right shoulder pain 3 years after rotator cuff injury. Patient took Motrin today at 1400 with no relief in pain. Patient was evaluated by ortho, diagnosed with rotator cuff injury, had physical therapy, had no surgery. History of right shoulder pain intermittently since. Denies any other pain, injury, symptoms. Medical history is asthma, constipation, IBS. - History of Current Complaint Chief Complaint: EDExtremityUpper Stated Complaint: RT SHOULDER PAIN Time Seen by Provider: 02/27/18 18:02 Hx Obtained From: Patient Hx Last Menstrual Period: hysterectomy Mechanism Of Injury: Other Onset/Duration: Started Days Ago Timing: Constant Severity Initially: Moderate Severity Currently: Moderate Pain Location: Shoulder Character: Aching, Throbbing Aggravating Factor(s): Movement Alleviating Factor(s): Nothing Associated Signs & Symptoms: Positive: Negative - Allergies/Home Medications Allergies/Adverse Reactions: Allergies Allergy/AdvReac Type Severity Reaction Status Date / Time amoxicillin Allergy Unknown Verified 02/27/18 17:57 Reaction Details Penicillins Allergy See Comment Verified 02/27/18 17:57 PMH/Surg Hx/FS Hx/Imm Hx Endocrine/Hematology History: Denies: Hx Diabetes, Hx Thyroid Disease Cardiovascular History: Reports: Hx Hypercholesterolemia Denies: Hx Hypertension Respiratory History: Reports: Hx Asthma Denies: Hx Chronic Obstructive Pulmonary Disease (COPD) GI History: Reports: Hx Irritable Bowel Denies: Hx Ulcer History: Reports: Hx Kidney Infection, Hx Kidney Stones - LEFT Sensory History: Denies: Hx Contacts or Glasses, Hx Hearing Aid Opthamlomology History: Denies: Hx Contacts or Glasses Neurological History: Reports: Hx Headaches, Hx Migraine Psychiatric History: Reports: Hx Depression - in the past - Surgical History Surgery Procedure, Year, and Place: hysterectomy. appendectomy. bilateral carpal tunnel Hx Anesthesia Reactions: No Infectious Disease History: No Infectious Disease History: Denies: Hx Hepatitis, Hx Human Immunodeficiency Virus (HIV), Traveled Outside the [place] in Last 30 Days - Family History Known Family History: Positive: Cardiac Disease, Hypertension, Diabetes - Social History Alcohol Use: Rare Substance Use Type: Reports: None Smoking Status (MU): Never Smoked Tobacco Length of Time of Smoking/Using Tobacco: only smoked at age 16 Have You Smoked in the Last Year: No Review of Systems Constitutional: Negative Eyes: Negative ENT: Negative Cardiovascular: Negative Respiratory: Negative Gastrointestinal: Negative Genitourinary: Negative Positive: Arthralgia Skin: Negative Neurological: Negative Psychological: Normal All Other Systems Reviewed And Are Negative: Yes Physical Exam - Summary Physical Exam Summary: No erythema, ecchymosis, swelling, extra warmth, deformity noted to right shoulder. Pain with abduction, external rotation. PMS intact distally. Triage Information Reviewed: Yes Vital Signs On Initial Exam: Initial Vitals Temp Pulse Resp BP Pulse Ox 97.4 F 67 20 105/61 98 02/27/18 17:45 02/27/18 17:45 02/27/18 17:45 02/27/18 17:45 02/27/18 17:45 Vital Signs Reviewed: Yes Appearance: Positive: Well-Appearing Skin: Positive: Warm Head/Face: Positive: Normal Head/Face Inspection Eyes: Positive: Normal Neck: Positive: Supple Respiratory/Lung Sounds: Positive: Clear to Auscultation Cardiovascular: Positive: Normal Abdomen Description: Positive: Nontender Musculoskeletal: Positive: Normal Neurological: Positive: Normal Psychiatric: Positive: Normal AVPU Assessment: Alert - [place] Coma Scale Best Eye Response: 4 - Spontaneous Best Motor Response: 6 - Obeys Commands Best Verbal Response: 5 - Oriented Coma Scale Total: 15 Diagnostics - Vital Signs Vital Signs Temp Pulse Resp BP Pulse Ox 02/27/18 17:45 97.4 F 67 20 105/61 98 - Laboratory Lab Statement: Any lab studies that have been ordered have been reviewed, and results considered in the medical decision making process. Course/Dx - Course Course Of Treatment: Patient complains of right shoulder pain starting yesterday 2 p.m. 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 History of right shoulder pain 3 years after rotator cuff injury. Patient took Motrin today at 1400 with no relief in pain. Patient was evaluated by ortho, diagnosed with rotator cuff injury, had physical therapy, had no surgery. History of right shoulder pain intermittently since. Denies any other pain, injury, symptoms. Medical history is asthma, constipation, IBS. Physical exam:No erythema, ecchymosis, swelling, extra warmth, deformity noted to right shoulder. Pain with abduction , external rotation. PMS intact distally. X-ray negative. Follow-up with ortho - Diagnoses Provider Diagnoses: Shoulder pain Discharge - Sign-Out/Discharge Documenting (check all that apply): Patient Departure - Discharge Plan Condition: Stable Disposition: HOME Prescriptions: HYDROcodone/ACETAMIN 5-325 MG* [Mccune 5-325 TAB*] 1 tab PO TID 2 Days #6 tab MDD 3-4 tabs HYDROcodone/ACETAMIN 5-325 MG* [Mccune 5-325 TAB*] 1 tab PO TID 2 Days #6 tab MDD 3-4 tABS Patient Education Materials: Rotator Cuff Tendinitis (ED), Shoulder Pain (ED) Referrals: Catie Obrien MD [Primary Care Provider] - Jorge A Malik MD [Medical Doctor] - Additional Instructions: Ice, rest, ibuprofen for pain. Follow-up with orthopedics Dr Malik for further evaluation. Return to the ED for any new or worsening symptoms - Billing Disposition and Condition Condition: STABLE Disposition: Home
[2018-02-27] MEDS ORDERED: Ibuprofen TAB* 400 MG PO ONE (19:28)
[2018-02-27 19:49] VITALS: BP 110/76
== END 2018-02-27 19:48 | disposition home or self-care (01) ==
LOC: ED 17:42
DX: M25.511 Pain in right shoulder (principal); Z88.0 Allergy status to penicillin
CPT/HCPCS: 99282; A9270-GY

== ENCOUNTER 2018-04-29 11:20 | Emergency (ER) | payer OTHER ==
--- OUTSIDE RECORDS SUMMARY | 2018-04-29 11:39 | XMS REPORT | Continuity of Care Document ---
:1970 External Reference #:[id number] Author Name Elis Barton Care Team Providers Name Role Phone Catie Obrien MD Primary Care Physician Unavailable Payers Type Date Identification Numbers Payment Provider Subscriber Policy Number: [id number] Grey Saldana PayID: [id number] [address] [place] [address] Advance Directives Description No Information Available Problems Date Description Provider Status Onset: 04/18/2018 Radiculopathy, cervical region Jefe Delgado MD Active Onset: 04/18/2018 Disorder of bursa of shoulder region Jefe Delgado MD Active Family History Description No Information Available Social History Type Date Description Comments Sex Unknown Lives With Male Partner Occupation Currently Working ETOH Use Denies alcohol use Tobacco Use Start: Unknown Patient has never smoked Smoking Status Reviewed: 04/18/18 Patient has never smoked Allergies, Adverse Reactions, Alerts Date Description Reaction Status Severity Comments 03/05/2018 Penicillin Itching Active Moderate Medications Medication Date Status Form Strength Qnty SIG Indications Ordering Provider Linzess / Active Capsules 145mcg Unknown 0000 Acyclovir / Active Capsules 200mg Unknown 0000 Medrol 03/05/ Hx Tablets 4mg 21tabs take as M54.12 Jefe Salas 2017 - directed per Sandy 04/16/ grayson [facility] 2018 instructions Hydrocodone- / Hx Tablets 5-325mg take 1 tablet Unknown Acetaminophe 0000 - by mouth three n 04/16/ times a day 2019 Immunizations Description No Information Available Vital Signs Date Vital Result Comment 04/18/2018 9:48am Height 66 inches 5'6" Weight 155.00 lb Heart Rate 70 /min Body Temperature 97.3 F Pain Level 8 O2 % BldC Oximetry 97 % BMI (Body Mass Index) 25.0 kg/m2 03/05/2018 11:00am Height 66 inches 5'6" Weight 155.00 lb Heart Rate 61 /min BP Systolic 122 mmHg BP Diastolic 78 mmHg Respiratory Rate 18 /min Body Temperature 98.7 F Pain Level 6 BMI (Body Mass Index) 25.0 kg/m2 Results Description No Information Available Procedures Description No Information Available Encounters Type Date Location Provider Dx Diagnosis Office Visit 04/18/2018 [facility] Jefe Pink4.12 Radiculopathy, 10:15a Of Azeb Delgado MD cervical region M75.51 Bursitis of right shoulder Office Visit 03/05/2018 Orthopedic Jefe Salas M54.12 Radiculopathy, 10:15a Services [facility] MD Sandy cervical region [facility] M75.51 Bursitis of right shoulder Office Visit 12/04/2016 3:12p [facility] N23 Unspecified renal Assoc,valencia Love M.D. [facility] N20.0 Calculus of kidney Plan of Treatment Future Appointment(s):05/20/2018 1:45 pm - Jefe Delgado [facility]04/18/2018 - Jefe Delgado MDM54.12 Radiculopathy, cervical regionFollow up:Follow up: 1 month - Possible injection next visit if no improvement with therapy - Fear of djqqdyoJ44.51 Bursitis of right shoulder
--- NOTE | 2018-04-29 11:55 | ED ---
Abdominal Pain/Female - HPI Summary HPI Summary: Pt. is a 48-year-old female who presents emergency department for ongoing abdominal pain 2 weeks. Patient states pain today is localized to her left for quadrant. Denies denies associated symptoms of fever, vomiting, urinary symptoms. She does note chronic constipation a history of IBS. Patient on her last bowel movement. She notes she had a recent colonoscopy which is unremarkable according to palpation. Symptoms are moderate in severity. No current modifying factors. - History of Current Complaint Chief Complaint: EDAbdPain Stated Complaint: LEFT ABD PAIN Time Seen by Provider: 04/29/18 11:52 Hx Obtained From: Patient Hx Last Menstrual Period: hysterectomy Pain Intensity: 10 Allergies/Adverse Reactions: Allergies Allergy/AdvReac Type Severity Reaction Status Date / Time amoxicillin Allergy Unknown Verified 04/29/18 11:32 Reaction Details Penicillins Allergy See Comment Verified 04/29/18 11:32 Home Medications: Home Medications Acyclovir* [Zovirax 200 MG CAP*] 400 mg PO BID 04/29/18 [History Confirmed 04/29] Albuterol HFA INHALER* [Ventolin HFA Inhaler*] 2 puff INH Q4H PRN 04/29/18 [ History Confirmed 04/29/18] Docusate CAP* [Colace Cap*] 100 mg PO BID PRN 04/29/18 [History Confirmed ] Fluticasone HFA 110 mcg(NF) [Flovent HFA 110 mcg(NF)] 2 puff INH BID 04/29/18 [ History Confirmed 04/29/18] Linaclotide (NF) [Linzess (NF)] 145 mcg PO DAILY 04/29/18 [History Confirmed ] Multivitamins/Minerals TAB* [Theragran/minerals TAB*] 1 tab PO DAILY 04/29/18 [ History Confirmed 04/29/18] Dawson-3 Fatty Acids (Nf) [Fish Oil (NF)] 1,000 mg PO BID 04/29/18 [History Confirmed 04/29/18] PMH/Surg Hx/FS Hx/Imm Hx Previously Healthy: Yes Endocrine/Hematology History: Denies: Hx Diabetes, Hx Thyroid Disease Cardiovascular History: Reports: Hx Hypercholesterolemia Denies: Hx Hypertension Respiratory History: Reports: Hx Asthma Denies: Hx Chronic Obstructive Pulmonary Disease (COPD) GI History: Reports: Hx Irritable Bowel Denies: Hx Ulcer History: Reports: Hx Kidney Infection, Hx Kidney Stones - LEFT Sensory History: Denies: Hx Contacts or Glasses, Hx Hearing Aid Opthamlomology History: Denies: Hx Contacts or Glasses Neurological History: Reports: Hx Headaches, Hx Migraine Psychiatric History: Reports: Hx Depression - in the past - Surgical History Surgery Procedure, Year, and Place: hysterectomy. appendectomy. bilateral carpal tunnel Hx Anesthesia Reactions: No Infectious Disease History: No Infectious Disease History: Denies: Hx Hepatitis, Hx Human Immunodeficiency Virus (HIV), Traveled Outside the [place] in Last 30 Days - Family History Known Family History: Positive: Cardiac Disease, Hypertension, Diabetes - Social History Occupation: Unemployed Lives: With Family Alcohol Use: Rare Substance Use Type: Reports: None Smoking Status (MU): Never Smoked Tobacco Length of Time of Smoking/Using Tobacco: only smoked at age 16 Have You Smoked in the Last Year: No Review of Systems Constitutional: Negative Negative: Fever, Chills Cardiovascular: Negative Respiratory: Negative Positive: Abdominal Pain, Other Genitourinary: Negative All Other Systems Reviewed And Are Negative: Yes Physical Exam Vital Signs On Initial Exam: Initial Vitals Temp Pulse Resp BP Pulse Ox 98 F 62 20 110/71 97 04/29/18 11:20 04/29/18 11:20 04/29/18 11:20 04/29/18 11:20 04/29/18 11:20 Diagnostics - Vital Signs Vital Signs Temp Pulse Resp BP Pulse Ox 04/29/18 11:20 98 F 62 20 110/71 97 - Laboratory Result Diagrams: 04/29/18 12:26 04/29/18 12:26 Lab Statement: Any lab studies that have been ordered have been reviewed, and results considered in the medical decision making process. Abdominal Pain Fem Course/Dx - Course Course Of Treatment: Pt. presenting for ongoing abd. pain and chronic constipation. She does have a hx of diverticulitis. Given pain location will obtain labs and Ct scan. Pt. given IV toradol for pain. Labs and urine are unremarkable. CT scan is negative for acute findings per radiology. CT scan does show marked constipation. Results discussed with pt. She states she sees GI at [facility] and was recently rx Linzess. She states Linzess works but gives her diarrhea so she does not take it. Strongly advised her to call her GI doctor today for close f.u. To return to ER if sxs change or worsen. Pt. understands and agrees with plan. - Diagnoses Differential Diagnosis: Positive: Bowel Obstruction, Constipation, Other - diverticulitis Provider Diagnoses: Chronic constipation, Abdominal pain Discharge - Sign-Out/Discharge Documenting (check all that apply): Patient Departure - Discharge Plan Condition: Good Disposition: HOME Patient Education Materials: Constipation (ED) Referrals: Catie Obrien MD [Primary Care Provider] - Additional Instructions: Call your GI doctor today to schedule a close follow up appointment Continue home medications as directed Return to ER if symptoms change or worsen - Billing Disposition and Condition Condition: GOOD Disposition: Home
[2018-04-29] MEDS ORDERED: NS 0.9% 1000 ML* 1,000 ML IV ONE (12:17)
[2018-04-29] MEDS ORDERED: Ketorolac INJ* 30 MG/ML 1 ML VIAL IV PUSH ONE (12:35)
[2018-04-29 12:40] LABS: ABS Basophils 0 10^3/ul (0-0.2); ABS Eosinophils 0.1 10^3/ul (0-0.6); ABS Lymphocytes 1.7 10^3/ul (1.0-4.8); ABS Monocytes 0.5 10^3/ul (0-0.8); ABS Neutrophils 3.4 10^3/ul (1.5-7.7); ABS Nucleated RBC 0 10^3/ul; Eosinophil % 1.3 %; Hematocrit 40 % (35-47); Hemoglobin 13.4 g/dl (12.0-16.0); Lymphocyte % 29.7 %; Mean Corpuscular HGB Conc 34 g/dl (31-36); Mean Corpuscular Hemoglobin 31 pg (27-31); Mean Corpuscular Volume 94 fL (80-97); Mean Platelet Volume 9.7 fL (7.4-10.4); Nucleated Red Blood Cells % 0.1; Platelet Count 156 10^3/ul (150-450); Red Blood Count 4.25 10^6/ul (4.00-5.40); Red Cell Distribution Width 13 % (10.5-15); White Blood Count 5.7 10^3/ul (3.5-10.8)
[2018-04-29 12:45] LABS: Urine Appearance Cloudy; Urine Bacteria Absent (Absent); Urine Bilirubin Negative (Negative); Urine Blood Negative (Negative); Urine Color Yellow; Urine Glucose Negative (Negative); Urine Ketones Negative (Negative); Urine Nitrite Negative (Negative); Urine Protein Negative (Negative); Urine Red Blood Cell Trace(0-2/hpf) (Absent); Urine Urobilinogen Negative (Negative); Urine White Blood Cell Trace(0-5/hpf) (Absent)
[2018-04-29 12:55] LABS: Albumin 4.2 g/dL (3.2-5.2); Albumin/Globulin Ratio 1.8 (1-3); BUN/Creatinine Ratio 10.4 (8-20); Calcium 9.1 mg/dL (8.6-10.3); Globulin 2.3 g/dL (2-4); Potassium 3.7 mmol/L (3.5-5.0); Total Bilirubin 0.7 mg/dL (0.2-1.0); Total Protein 6.5 g/dL (6.4-8.9)
[2018-04-29] MEDS ORDERED: Iohexol 300* (CONTRAST) 10 ML SDV IV ONE (12:57)
[2018-04-29 14:42] VITALS: BP 113/64
== END 2018-04-29 14:30 | disposition home or self-care (01) ==
LOC: ED 11:20
DX: R10.9 Unspecified abdominal pain (principal); K59.09 Other constipation; Z88.0 Allergy status to penicillin
CPT/HCPCS: 36415; 74177; 80053; 81003; 81015; 85025; 87086; 99282; J1885; Q9967